=== PATIENT | male | born 1965 | race Caucasian/White ===

== ENCOUNTER 2019-08-25 06:16 | Day surgery (SDC) | payer OTHER ==
[~2019-08-25] VITALS: Ht 172.7 cm; Wt 80.7 kg
[2019-08-25] MEDS ORDERED: fentaNYL 0.05 MG/ML VIAL ONE (07:33)
[2019-08-25] MEDS ORDERED: LIDOCAINE 2% 100 MG/5 ML UJET TP ONE (07:33)
[2019-08-25] MEDS ORDERED: fentaNYL 0.05 MG/ML VIAL IVP ONE (08:55)
== END 2019-08-25 08:44 | disposition home or self-care (01) ==
LOC: MDS 06:16 → MMU 06:17 → MDS 08:44
PROVIDERS: ATTEND Internal Medicine Gastroenterology
DX: R19.5 Other fecal abnormalities (principal); K57.30 Diverticulosis of large intestine without perforation or abscess without bleeding
CPT/HCPCS: 45378; J3010